=== PATIENT | male | born 1945 | race Caucasian/White ===

== ENCOUNTER → 2016-05-27 | Outpatient (CLI) | payer MEDICARE, OTHER ==
[~2016-05-27] MED LIST: GLUCOSAMINE & C1 TA1 PO; MULTIPLE VITAMI1 CAP PO; PREVACID 30MG30 M1 PO
[2016-05-27 09:35] LABS: BASO # 0.1 (0.0-0.2); BASO % 0.6 % (0.0-2.0); EOS # 0.1 (0.0-0.7); GRAN # 6.5 (1.4-6.5); GRAN % 74.5 % (42.2-75.2); HEMATOCRIT 45.9 % (42.0-52.0); HEMOGLOBIN 15.2 g/dl (13.5-18.0); LYMPH # 1.1 (1.2-3.4); LYMPH % 12.8 % (20.0-51.0); MEAN CELL VOLUME 87 fl (80.0-100.0); MEAN CORPUSCULAR HEMOGLOBIN 29 pg (27.0-31.0); MEAN CORPUSCULAR HGB CONC 33 g/dl (33.0-37.0); MEAN PLATELET VOLUME 11.3 fl (7.4-10.4); MONO # 0.9 (0.1-0.6); MONO % 10.8 % (1.7-9.3); PLATELET COUNT 182 K/mm3 (130-400); RED BLOOD COUNT 5.29 M/mm3 (4.20-5.60); REDCELL DISTRIBUTION WIDTH-CV 13.4 % (11.5-14.5); WHITE BLOOD COUNT 8.7 K/mm3 (4.8-10.8)
[2016-05-27 09:43] LABS: PH 6 (5-8); SQUAMOUS EPITHELIAL None Seen /hpf; URINE APPEARANCE Clear; URINE BACTERIA None Seen /hpf; URINE BILIRUBIN Negative (NEGATIVE); URINE BLOOD Negative (NEGATIVE); URINE COLOR Yellow; URINE GLUCOSE Negative (NEGATIVE); URINE KETONE Negative (NEGATIVE); URINE RBC 0-2 /hpf; URINE UROBILINOGEN Negative (NEGATIVE); URINE WBC 0-2 /hpf
[2016-05-27 09:51] LABS: ADJUSTED CALCIUM 9.7 mg/dL (8.4-10.2); ALBUMIN 3.8 gm/dL (3.5-5.0); BILIRUBIN,TOTAL 0.9 mg/dL (0.0-1.0); CALCIUM 9.5 mg/dL (8.4-10.2); CREATININE, serum 1.17 mg/dL (0.66-1.25); POTASSIUM 4.6 mmol/L (3.4-5.0); TOTAL PROTEIN 7.3 gm/dL (6.4-8.2)
[2016-05-27 10:21] LABS: PSA-TOTAL 1.42 ng/mL (0-4); THYROID STIMULATING HORMONE 1.52 uIU/mL (0.465-4.680)
== END ==
LOC: COL.LAB 08:29
PROVIDERS: Internal Medicine
DX: Z12.5 Encounter for screening for malignant neoplasm of prostate (principal); G47.33 Obstructive sleep apnea (adult) (pediatric); R74.8 Abnormal levels of other serum enzymes; Z11.59 Encounter for screening for other viral diseases; K21.9 Gastro-esophageal reflux disease without esophagitis; R73.01 Impaired fasting glucose
CPT/HCPCS: G0103

== ENCOUNTER → 2017-06-15 | Outpatient (CLI) | payer MEDICARE, OTHER ==
[2017-06-15 08:14] LABS: COLLECTION METHOD CLEAN CATCH
[2017-06-15 08:50] LABS: BASO # 0.1 (0.0-0.2); BASO % 0.6 % (0.0-2.0); EOS # 0.2 (0.0-0.7); EOS % 2.7 % (0-4.0); GRAN # 5.3 (1.4-6.5); HEMATOCRIT 47.3 % (42.0-52.0); HEMOGLOBIN 15.7 g/dl (13.5-18.0); LYMPH # 1.8 (1.2-3.4); LYMPH % 21.7 % (20.0-51.0); MEAN CELL VOLUME 88 fl (80.0-100.0); MEAN CORPUSCULAR HEMOGLOBIN 29 pg (27.0-31.0); MEAN CORPUSCULAR HGB CONC 33 g/dl (33.0-37.0); MEAN PLATELET VOLUME 11.5 fl (7.4-10.4); MONO # 0.8 (0.1-0.6); MONO % 9.6 % (1.7-9.3); PLATELET COUNT 168 K/mm3 (130-400); RED BLOOD COUNT 5.39 M/mm3 (4.20-5.60); REDCELL DISTRIBUTION WIDTH-CV 13.2 % (11.5-14.5)
[2017-06-15 09:00] LABS: PH 5 (5-8); SQUAMOUS EPITHELIAL None Seen /hpf; URINE APPEARANCE Clear; URINE BACTERIA None Seen /hpf; URINE BILIRUBIN Negative (NEGATIVE); URINE BLOOD Negative (NEGATIVE); URINE COLOR Yellow; URINE GLUCOSE Negative (NEGATIVE); URINE KETONE Negative (NEGATIVE); URINE LEUKOCYTE ESTERASE Negative (NEGATIVE); URINE NITRATE Negative (NEGATIVE); URINE PROTEIN(semi-quant) 1+ (NEGATIVE); URINE UROBILINOGEN Negative (NEGATIVE); URINE WBC 0-2 /hpf
[2017-06-15 09:05] LABS: ALBUMIN 4.1 gm/dL (3.5-5.0); BILIRUBIN,TOTAL 0.6 mg/dL (0.0-1.0); CHOLESTEROL RISK RATIO 3.8; CREATININE, serum 1.13 mg/dL (0.66-1.25); POTASSIUM 4.6 mmol/L (3.4-5.0); TOTAL PROTEIN 7.4 gm/dL (6.4-8.2)
[2017-06-15 09:35] LABS: THYROID STIMULATING HORMONE 2.14 uIU/mL (0.465-4.680)
[2017-06-15 09:37] LABS: PSA-TOTAL 1.42 ng/mL (0-4)
== END ==
LOC: COL.LAB 08:07
PROVIDERS: Internal Medicine
DX: Z12.5 Encounter for screening for malignant neoplasm of prostate (principal); K21.9 Gastro-esophageal reflux disease without esophagitis; R73.01 Impaired fasting glucose; R74.8 Abnormal levels of other serum enzymes
CPT/HCPCS: G0103

== ENCOUNTER 2017-10-13 13:19 | Inpatient (IN) | payer MEDICARE, OTHER ==
[~2017-10-13] VITALS: Wt 108.5 kg
[~2017-10-13 13:19] MED LIST changes: +CEROVITE SENIOR1 TA1 PO; -GLUCOSAMINE & C1 TA1 PO; +GLUCOSAMINE MSM1 TAB PO; -MULTIPLE VITAMI1 CAP PO
[2018-03-07] VITALS (10 sets, daily range): BP systolic 115–149; BP diastolic 61–73; PULSE 40–60; TEMP 97.8–978
[2018-03-07 16:56] LABS: BASO # 0.1 (0.0-0.2); BASO % 0.5 % (0.0-2.0); EOS # 0.1 (0.0-0.7); EOS % 0.8 % (0-4.0); GRAN # 10.4 (1.4-6.5); GRAN % 80.9 % (42.2-75.2); HEMATOCRIT 45.2 % (42.0-52.0); HEMOGLOBIN 14.8 g/dl (13.5-18.0); LYMPH # 1.2 (1.2-3.4); MEAN CELL VOLUME 90 fl (80.0-100.0); MEAN CORPUSCULAR HEMOGLOBIN 29 pg (27.0-31.0); MEAN CORPUSCULAR HGB CONC 33 g/dl (33.0-37.0); MEAN PLATELET VOLUME 10.7 fl (7.4-10.4); MONO # 1.1 (0.1-0.6); MONO % 8.3 % (1.7-9.3); PLATELET COUNT 155 K/mm3 (130-400); RED BLOOD COUNT 5.05 M/mm3 (4.20-5.60); REDCELL DISTRIBUTION WIDTH-CV 12.9 % (11.5-14.5)
[2018-03-07 17:26] LABS: ALBUMIN 3.3 gm/dL (3.5-5.0); BILIRUBIN UNCONJUGATED 0.3 mg/dL (0.0-1.1); BILIRUBIN,DIRECT 0.2 mg/dL (0.0-0.4); BILIRUBIN,TOTAL 0.5 mg/dL (0.0-1.0); CALCIUM 8.4 mg/dL (8.4-10.2); CREATININE, serum 0.85 mg/dL (0.66-1.25); POTASSIUM 4.6 mmol/L (3.4-5.0); TOTAL PROTEIN 6.4 gm/dL (6.4-8.2)
[2018-03-07 18:23] LABS: THYROID STIMULATING HORMONE 3.92 uIU/mL (0.465-4.680)
[2018-03-08 01:58] VITALS: BP 118/67; PULSE 70; TEMP 98.5
[2018-03-08 06:43] VITALS: BP 116/51; PULSE 47; TEMP 98.2
[2018-03-08 06:53] LABS: HEMATOCRIT 41.4 % (42.0-52.0); HEMOGLOBIN 13.4 g/dl (13.5-18.0)
[2018-03-08 08:32] VITALS: BP 117/61; PULSE 43; TEMP 99.1
[2018-03-08 11:40] VITALS: BP 129/63; PULSE 50; TEMP 98.4
[2018-03-08 16:19] VITALS: BP 122/52; PULSE 58; TEMP 98.2
[2018-03-08 22:58] VITALS: BP 139/59; PULSE 50; TEMP 98.9
[2018-03-09 02:59] VITALS: BP 148/63; PULSE 54; TEMP 98.9
[2018-03-09 07:41] VITALS: BP 132/61; PULSE 44; TEMP 98.7
[2018-03-09 16:51] VITALS: BP 132/59; PULSE 87; TEMP 98.4
[2018-03-09 20:19] VITALS: BP 126/57; PULSE 57; TEMP 98.6
[2018-03-09 23:40] VITALS: BP 115/57; PULSE 50; TEMP 98.6
[2018-03-10 03:33] VITALS: BP 122/66; PULSE 60; TEMP 98.5
[2018-03-10] MEDS ORDERED: MULTAQ400 MG PO (06:55)
[2018-03-10] MEDS ORDERED: ASPI325T6 PO (06:56)
[2018-03-10] MEDS ORDERED: NORCO 325 MG-7.1 TAB PO (06:56)
[2018-03-10] MEDS ORDERED: ROXICODONE 55 MG/TAB PO (06:58)
[2018-03-10 07:52] VITALS: BP 102/51; PULSE 46; TEMP 98.2
[2018-03-10 12:06] VITALS: BP 119/58; PULSE 50; TEMP 97.8
[2018-03-10] MEDS ORDERED: TAMBOCOR 1100 MG/TAB PO ×2 (12:33→12:34)
[2018-03-10] MEDS ORDERED: CEPHALEXIN500 M1 PO (12:36)
[2018-03-10 16:18] VITALS: BP 121/67; PULSE 50; TEMP 98.7
[2018-03-11 00:06] LABS: RHEUMATOID FACTOR-SCREEN <15 IU/mL (0-29)
[2018-03-14 00:56] LABS: ANA SCREEN with REFLEX Positive (Negative)
[2018-03-14 13:29] LABS: ANGIOTENSIN CONVERTING ENZYME 27 U/L (8 - 53)
[2018-03-15 22:40] LABS: ANTISCLERODERMA-70 AB XXX
== END 2018-03-10 16:54 | disposition home or self-care (01) | DRG 470 ==
LOC: JCC 12-13 07:30
PROVIDERS: Hospitalist; Internal Medicine Pulmonary Disease; Orthopaedic Surgery
PROC: 0SRC0J9 Replacement of Right Knee Joint with Synthetic Substitute, Cemented, Open Approach (ICD-10-PCS; principal; 2018-03-07 10:05)
PROC: 0JH632Z Insertion of Monitoring Device into Chest Subcutaneous Tissue and Fascia, Percutaneous Approach (ICD-10-PCS; 2018-03-09)
DX: M17.11 Unilateral primary osteoarthritis, right knee (principal); I97.191 Other postprocedural cardiac functional disturbances following other surgery; I48.0 Paroxysmal atrial fibrillation; G47.33 Obstructive sleep apnea (adult) (pediatric); I27.29 Other secondary pulmonary hypertension
CPT/HCPCS: 99222; 99231-AI; A4314; A9284; C1713; C1776; J0690; J1170; J2250; J2405; J2704; J3010; J7120

== ENCOUNTER → 2018-02-17 | Outpatient (CLI) | payer MEDICARE, OTHER ==
[2018-02-17 09:43] LABS: BASO % 0.5 % (0.0-2.0); EOS # 0.2 (0.0-0.7); EOS % 2.2 % (0-4.0); GRAN # 6.2 (1.4-6.5); GRAN % 72.7 % (42.2-75.2); HEMATOCRIT 47.8 % (42.0-52.0); LYMPH # 1.2 (1.2-3.4); LYMPH % 14.4 % (20.0-51.0); MEAN CELL VOLUME 88 fl (80.0-100.0); MEAN CORPUSCULAR HEMOGLOBIN 29 pg (27.0-31.0); MEAN CORPUSCULAR HGB CONC 34 g/dl (33.0-37.0); MEAN PLATELET VOLUME 11.4 fl (7.4-10.4); MONO # 0.9 (0.1-0.6); MONO % 9.9 % (1.7-9.3); PLATELET COUNT 187 K/mm3 (130-400); RED BLOOD COUNT 5.45 M/mm3 (4.20-5.60); REDCELL DISTRIBUTION WIDTH-CV 13.3 % (11.5-14.5)
[2018-02-17 09:51] LABS: INR 1.1 (0.8-3.0); MUCOUS Present /lpf; PH 5 (5-8); PROTHROMBIN TIME 12.5 SECONDS (9.7-12.8); SQUAMOUS EPITHELIAL 0-2 /hpf; URINE APPEARANCE Clear; URINE BACTERIA None Seen /hpf; URINE BILIRUBIN Negative (NEGATIVE); URINE BLOOD Negative (NEGATIVE); URINE COLOR Yellow; URINE GLUCOSE Negative (NEGATIVE); URINE KETONE Negative (NEGATIVE); URINE LEUKOCYTE ESTERASE Negative (NEGATIVE); URINE NITRATE Negative (NEGATIVE); URINE PROTEIN(semi-quant) 1+ (NEGATIVE); URINE RBC 0-2 /hpf; URINE UROBILINOGEN Negative (NEGATIVE)
[2018-02-17 09:54] LABS: ALBUMIN 3.9 gm/dL (3.5-5.0); BILIRUBIN,TOTAL 0.7 mg/dL (0.0-1.0); CALCIUM 9.2 mg/dL (8.4-10.2); COLLECTION METHOD CLEAN CATCH; CREATININE, serum 1.07 mg/dL (0.66-1.25); POTASSIUM 5.7 mmol/L (3.4-5.0); TOTAL PROTEIN 7.3 gm/dL (6.4-8.2)
== END ==
LOC: COL.LAB 08:47
PROVIDERS: Internal Medicine
DX: Z01.818 Encounter for other preprocedural examination (principal)

== ENCOUNTER 2018-02-20 09:01 | Outpatient (RCR) | payer MEDICARE, OTHER ==
[2018-03-10] MEDS ORDERED: MULTAQ400 MG PO (06:55)
[2018-03-10] MEDS ORDERED: ASPI325T6 PO (06:56)
[2018-03-10] MEDS ORDERED: NORCO 325 MG-7.1 TAB PO (06:56)
[2018-03-10] MEDS ORDERED: ROXICODONE 55 MG/TAB PO (06:58)
[2018-03-10] MEDS ORDERED: TAMBOCOR 1100 MG/TAB PO ×2 (12:33→12:34)
[2018-03-10] MEDS ORDERED: CEPHALEXIN500 M1 PO (12:36)
== END 2018-05-21 | disposition home or self-care (01) ==
LOC: WSPT
DX: Z01.818 Encounter for other preprocedural examination (principal); M17.11 Unilateral primary osteoarthritis, right knee
CPT/HCPCS: G8978-GP; G8979-GP

== ENCOUNTER → 2018-02-21 | Outpatient (CLI) | payer MEDICARE, OTHER | LOC: COL.LAB 15:27 | DX: E87.5 Hyperkalemia (principal) ==

== ENCOUNTER → 2018-02-28 | Outpatient (CLI) | payer MEDICARE, OTHER ==
[2018-02-28 11:11] LABS: HIV 1/2 Antibodies Non-Reactive; HIV-1p24 Antigen Non-Reactive
== END ==
LOC: COL.LAB 10:26
PROVIDERS: Orthopaedic Surgery
DX: Z01.812 Encounter for preprocedural laboratory examination (principal); M17.11 Unilateral primary osteoarthritis, right knee

== ENCOUNTER 2018-05-22 12:45 | Outpatient (RCR) | payer MEDICARE, OTHER ==
[~2018-05-22 12:45] MED LIST changes: +ASPI325T6 PO; +CEPHALEXIN500 M1 PO; +MULTAQ400 MG PO; +NORCO 325 MG-7.1 TAB PO; +ROXICODONE 55 MG/TAB PO; +TAMBOCOR 1100 MG/TAB PO
== END 2018-06-11 | disposition home or self-care (01) ==
LOC: WSC
DX: Z47.1 Aftercare following joint replacement surgery (principal); Z96.651 Presence of right artificial knee joint
CPT/HCPCS: G8978-GP; G8979-GP

== ENCOUNTER 2018-06-07 13:15 | Outpatient (RCR) | payer MEDICARE, OTHER ==
[2018-06-13] MEDS ORDERED: PLAVIX 75MG TAB75 MG PO (10:56)
[2018-06-14] MEDS ORDERED: CEPHALEXIN500 M1 PO (10:49)
== END 2018-08-20 | disposition still patient (30) ==
LOC: WSPT
DX: M17.11 Unilateral primary osteoarthritis, right knee (principal); Z79.891 Long term (current) use of opiate analgesic; Z79.01 Long term (current) use of anticoagulants; Z79.899 Other long term (current) drug therapy

== ENCOUNTER → 2018-07-03 | Outpatient (CLI) | payer MEDICARE, OTHER ==
[~2018-07-03] MED LIST changes: +PLAVIX 75MG TAB75 MG PO
[2018-07-03 09:11] LABS: COLLECTION METHOD CLEAN CATCH
[2018-07-03 09:20] LABS: BASO % 0.5 % (0.0-2.0); EOS # 0.3 (0.0-0.7); EOS % 3.9 % (0-4.0); GRAN # 4.4 (1.4-6.5); GRAN % 66.9 % (42.2-75.2); HEMATOCRIT 46.8 % (42.0-52.0); HEMOGLOBIN 15.3 g/dl (13.5-18.0); LYMPH # 1.1 (1.2-3.4); LYMPH % 16.7 % (20.0-51.0); MEAN CELL VOLUME 87 fl (80.0-100.0); MEAN CORPUSCULAR HEMOGLOBIN 29 pg (27.0-31.0); MEAN CORPUSCULAR HGB CONC 33 g/dl (33.0-37.0); MEAN PLATELET VOLUME 10.6 fl (7.4-10.4); MONO # 0.8 (0.1-0.6); MONO % 11.8 % (1.7-9.3); PLATELET COUNT 185 K/mm3 (130-400); RED BLOOD COUNT 5.37 M/mm3 (4.20-5.60)
[2018-07-03 09:28] LABS: PH 6 (5-8); SQUAMOUS EPITHELIAL None Seen /hpf; URINE APPEARANCE Clear; URINE BACTERIA None Seen /hpf; URINE BILIRUBIN Negative (NEGATIVE); URINE BLOOD Negative (NEGATIVE); URINE COLOR Yellow; URINE GLUCOSE Negative (NEGATIVE); URINE KETONE Negative (NEGATIVE); URINE LEUKOCYTE ESTERASE Negative (NEGATIVE); URINE NITRATE Negative (NEGATIVE); URINE PROTEIN(semi-quant) Negative (NEGATIVE); URINE RBC 0-2 /hpf; URINE UROBILINOGEN Negative (NEGATIVE)
[2018-07-03 09:33] LABS: ALBUMIN 3.8 gm/dL (3.5-5.0); BILIRUBIN,TOTAL 0.4 mg/dL (0.0-1.0); CALCIUM 9.2 mg/dL (8.4-10.2); CHOLESTEROL RISK RATIO 3.6; CREATININE, serum 0.99 mg/dL (0.66-1.25); POTASSIUM 4.6 mmol/L (3.4-5.0); TOTAL PROTEIN 7.2 gm/dL (6.4-8.2)
[2018-07-03 10:01] LABS: THYROID STIMULATING HORMONE 1.85 uIU/mL (0.465-4.680)
== END ==
LOC: COL.LAB 08:36
PROVIDERS: Internal Medicine
DX: I48.0 Paroxysmal atrial fibrillation (principal); I27.20 Pulmonary hypertension, unspecified; R73.01 Impaired fasting glucose; R74.8 Abnormal levels of other serum enzymes

== ENCOUNTER → 2018-07-24 | Outpatient (CLI) | payer MEDICARE, OTHER | LOC: COL.PUL 09:59 | DX: Z87.09 Personal history of other diseases of the respiratory system (principal) ==

== ENCOUNTER → 2018-07-25 | Outpatient (CLI) | payer MEDICARE, OTHER | LOC: COL.VAS 08:51 | DX: I27.20 Pulmonary hypertension, unspecified (principal); I48.91 Unspecified atrial fibrillation; I51.7 Cardiomegaly ==

== ENCOUNTER 2019-02-27 08:45 | Outpatient (RCR) | payer MEDICARE, OTHER | END 2019-04-05 | disposition home or self-care (01) | LOC: WSPT | DX: S76.311D Strain of muscle, fascia and tendon of the posterior muscle group at thigh level, right thigh, subsequent encounter (principal) ==

== ENCOUNTER → 2019-06-28 | Outpatient (CLI) | payer MEDICARE, OTHER ==
[2019-06-28 09:55] LABS: COLLECTION METHOD CLEAN CATCH
[2019-06-28 10:04] LABS: BASO # 0.1 (0.0-0.2); BASO % 0.6 % (0.0-2.0); EOS # 0.2 (0.0-0.7); EOS % 2.3 % (0-4.0); GRAN # 7.2 (1.4-6.5); GRAN % 73.4 % (42.2-75.2); HEMATOCRIT 47.9 % (42.0-52.0); HEMOGLOBIN 15.5 g/dl (13.5-18.0); LYMPH # 1.3 (1.2-3.4); LYMPH % 13.4 % (20.0-51.0); MEAN CELL VOLUME 90 fl (80.0-100.0); MEAN CORPUSCULAR HEMOGLOBIN 29 pg (27.0-31.0); MEAN CORPUSCULAR HGB CONC 32 g/dl (33.0-37.0); MEAN PLATELET VOLUME 10.6 fl (7.4-10.4); MONO % 9.8 % (1.7-9.3); PLATELET COUNT 192 K/mm3 (130-400); RED BLOOD COUNT 5.33 M/mm3 (4.20-5.60); REDCELL DISTRIBUTION WIDTH-CV 13.5 % (11.5-14.5)
[2019-06-28 10:13] LABS: BILIRUBIN,TOTAL 0.7 mg/dL (0.0-1.0); CALCIUM 9.1 mg/dL (8.4-10.2); CREATININE, serum 1.09 (0.66-1.25); POTASSIUM 4.3 mmol/L (3.4-5.0); TOTAL PROTEIN 7.2 gm/dL (6.4-8.2)
[2019-06-28 10:15] LABS: PH 7 (5-8); SQUAMOUS EPITHELIAL None Seen /hpf; URINE APPEARANCE Clear; URINE BACTERIA None Seen /hpf; URINE BILIRUBIN Negative (NEGATIVE); URINE BLOOD Negative (NEGATIVE); URINE COLOR Yellow; URINE GLUCOSE Negative (NEGATIVE); URINE KETONE Negative (NEGATIVE); URINE LEUKOCYTE ESTERASE Negative (NEGATIVE); URINE NITRATE Negative (NEGATIVE); URINE PROTEIN(semi-quant) Negative (NEGATIVE); URINE RBC 0-2 /hpf; URINE UROBILINOGEN Negative (NEGATIVE)
[2019-06-28 10:42] LABS: THYROID STIMULATING HORMONE 1.39 uIU/mL (0.465-4.680)
== END ==
LOC: COL.LAB 09:27
PROVIDERS: Internal Medicine
DX: Z12.5 Encounter for screening for malignant neoplasm of prostate (principal); K22.70 Barrett's esophagus without dysplasia; E78.2 Mixed hyperlipidemia; I48.0 Paroxysmal atrial fibrillation; I27.20 Pulmonary hypertension, unspecified

== ENCOUNTER 2019-09-13 14:13 | Outpatient (RCR) | payer MEDICARE, OTHER | END 2019-11-22 10:01 | disposition home or self-care (01) | LOC: WSPT 14:13 | DX: M25.511 Pain in right shoulder (principal); M25.512 Pain in left shoulder ==

== ENCOUNTER 2020-03-04 11:15 | Outpatient (RCR) | payer MEDICARE, OTHER | END 2020-03-29 14:45 | disposition home or self-care (01) | LOC: WSOT 11:15 | DX: M25.539 Pain in unspecified wrist (principal) ==

== ENCOUNTER → 2020-07-10 | Outpatient (CLI) | payer MEDICARE, OTHER ==
[2020-07-10 10:31] LABS: BASO # 0.1 (0.0-0.2); BASO % 0.8 % (0.0-2.0); EOS # 0.2 (0.0-0.7); EOS % 2.6 % (0-4.0); GRAN # 5.2 (1.4-6.5); GRAN % 71.7 % (42.2-75.2); HEMATOCRIT 45.3 % (42.0-52.0); HEMOGLOBIN 15.1 g/dl (13.5-18.0); LYMPH # 1.2 (1.2-3.4); LYMPH % 16.2 % (20.0-51.0); MEAN CELL VOLUME 88 fl (80.0-100.0); MEAN CORPUSCULAR HEMOGLOBIN 29 pg (27.0-31.0); MEAN CORPUSCULAR HGB CONC 33 g/dl (33.0-37.0); MEAN PLATELET VOLUME 10.5 fl (7.4-10.4); MONO # 0.6 (0.1-0.6); MONO % 8.4 % (1.7-9.3); PLATELET COUNT 202 K/mm3 (130-400); RED BLOOD COUNT 5.14 M/mm3 (4.20-5.60); REDCELL DISTRIBUTION WIDTH-CV 13.2 % (11.5-14.5)
[2020-07-10 10:41] LABS: ALBUMIN 3.9 gm/dL (3.5-5.0); BILIRUBIN,TOTAL 0.5 mg/dL (0.0-1.0); CALCIUM 8.9 mg/dL (8.4-10.2); CHOLESTEROL RISK RATIO 4.9; CREATININE, serum 1.03 (0.66-1.25); POTASSIUM 4.3 mmol/L (3.4-5.0); TOTAL PROTEIN 7.5 gm/dL (6.4-8.2)
[2020-07-10 11:10] LABS: THYROID STIMULATING HORMONE 1.42 uIU/mL (0.465-4.680)
== END ==
LOC: COL.LAB 08:52
PROVIDERS: Internal Medicine
DX: I48.0 Paroxysmal atrial fibrillation (principal); R74.8 Abnormal levels of other serum enzymes; K21.9 Gastro-esophageal reflux disease without esophagitis; K22.70 Barrett's esophagus without dysplasia; I27.20 Pulmonary hypertension, unspecified; R73.01 Impaired fasting glucose

== ENCOUNTER → 2021-08-10 | Outpatient (CLI) | payer MEDICARE, OTHER ==
[2021-08-10 10:33] LABS: BASO % 0.5 % (0.0-2.0); EOS # 0.2 K/mm3 (0.0-0.7); EOS % 1.8 % (0.0-4.0); GRAN # 5.9 K/mm3 (1.4-6.5); GRAN % 72.2 % (42.2-75.2); HEMATOCRIT 45.4 % (42.0-52.0); HEMOGLOBIN 15.1 g/dl (13.5-18.0); LYMPH # 1.3 K/mm3 (1.2-3.4); LYMPH % 15.8 % (20.0-51.0); MEAN CELL VOLUME 89 fl (80.0-100.0); MEAN CORPUSCULAR HEMOGLOBIN 29 pg (27-31); MEAN CORPUSCULAR HGB CONC 33 g/dl (33.0-37.0); MEAN PLATELET VOLUME 10.8 fl (7.4-10.4); MONO # 0.8 K/mm3 (0.1-0.6); MONO % 9.5 % (1.7-9.3); PLATELET COUNT 194 K/mm3 (130-400); RED BLOOD COUNT 5.13 M/mm3 (4.20-5.60); REDCELL DISTRIBUTION WIDTH-CV 13.6 % (11.5-14.5)
[2021-08-10 10:56] LABS: ALBUMIN 3.6 gm/dL (3.4-4.8); BILIRUBIN,TOTAL 0.6 mg/dL (0.2-1.2); CALCIUM 8.8 mg/dL (8.4-10.2); CHOLESTEROL RISK RATIO 3.9; CREATININE, serum 1.12 mg/dL (0.72-1.25); POTASSIUM 4.2 mmol/L (3.5-4.5); TOTAL PROTEIN 6.9 gm/dL (6.2-8.1); URIC ACID 5.7 mg/dL (3.5-7.2)
[2021-08-10 11:22] LABS: THYROID STIMULATING HORMONE 1.456 uIU/mL (0.350-4.940)
== END ==
LOC: COL.LAB 09:20
PROVIDERS: Internal Medicine
DX: K22.70 Barrett's esophagus without dysplasia (principal); I27.20 Pulmonary hypertension, unspecified; J30.2 Other seasonal allergic rhinitis; R74.8 Abnormal levels of other serum enzymes; Z87.39 Personal history of other diseases of the musculoskeletal system and connective tissue

== ENCOUNTER → 2021-09-08 | Outpatient (RCR) | payer MEDICARE, OTHER | END | disposition home or self-care (01) | LOC: PT.GENESIS | DX: M16.12 Unilateral primary osteoarthritis, left hip (principal) ==

== ENCOUNTER → 2021-10-05 | Outpatient (CLI) | payer MEDICARE, OTHER ==
[2021-10-05 17:00] LABS: BASO # 0.1 K/mm3 (0.0-0.2); BASO % 0.7 % (0.0-2.0); EOS # 0.3 K/mm3 (0.0-0.7); EOS % 3.1 % (0.0-4.0); GRAN # 5.9 K/mm3 (1.4-6.5); GRAN % 67.5 % (42.2-75.2); HEMATOCRIT 44.6 % (42.0-52.0); HEMOGLOBIN 14.9 g/dl (13.5-18.0); LYMPH # 1.5 K/mm3 (1.2-3.4); LYMPH % 17.4 % (20.0-51.0); MEAN CELL VOLUME 89 fl (80.0-100.0); MEAN CORPUSCULAR HEMOGLOBIN 30 pg (27-31); MEAN CORPUSCULAR HGB CONC 33 g/dl (33.0-37.0); MEAN PLATELET VOLUME 10.2 fl (7.4-10.4); MONO # 0.9 K/mm3 (0.1-0.6); MONO % 10.6 % (1.7-9.3); PLATELET COUNT 230 K/mm3 (130-400); REDCELL DISTRIBUTION WIDTH-CV 14.3 % (11.5-14.5)
[2021-10-05 17:03] LABS: PH 5 (5-8); SQUAMOUS EPITHELIAL None Seen /hpf (0-10); URINE APPEARANCE Clear (CLEAR/HAZY); URINE BACTERIA None Seen /hpf (NONE SEEN); URINE BILIRUBIN Negative (NEGATIVE); URINE BLOOD Negative (NEGATIVE); URINE COLOR Yellow (YELLOW); URINE GLUCOSE Negative (NEGATIVE); URINE KETONE Negative (NEGATIVE); URINE LEUKOCYTE ESTERASE Negative (NEGATIVE); URINE NITRATE Negative (NEGATIVE); URINE PROTEIN(semi-quant) 1+ (NEGATIVE); URINE RBC 0-2 /hpf (0-2); URINE UROBILINOGEN Negative (NEGATIVE)
[2021-10-05 17:06] LABS: COLLECTION METHOD CLEAN CATCH; INR 1.2 (0.8-3.0); PROTHROMBIN TIME 13.7 SECONDS (9.7-12.8)
[2021-10-05 17:27] LABS: CREATININE, serum 1.13 mg/dL (0.72-1.25); POTASSIUM 4.3 mmol/L (3.5-4.5)
== END ==
LOC: COL.LAB 16:11
PROVIDERS: Internal Medicine
DX: Z01.812 Encounter for preprocedural laboratory examination (principal); I48.0 Paroxysmal atrial fibrillation

== ENCOUNTER 2021-10-07 14:45 | Outpatient (RCR) | payer MEDICARE, OTHER | END 2021-10-07 16:30 | disposition still patient (30) | LOC: PT.GENESIS 14:45 | DX: M16.12 Unilateral primary osteoarthritis, left hip (principal) ==

== ENCOUNTER 2021-10-19 11:07 | Outpatient (RCR) | payer MEDICARE, OTHER ==
[2021-10-22] MEDS ORDERED: ELIQUIS 2.5 PO (13:22)
[2021-10-22] MEDS ORDERED: XARELTO10 MG PO (15:40)
== END 2021-10-29 09:43 | disposition home or self-care (01) ==
LOC: PT.GENESIS 11:07
DX: M16.12 Unilateral primary osteoarthritis, left hip (principal)

== ENCOUNTER 2021-10-22 12:39 | Day surgery (SDC) | payer MEDICARE, OTHER ==
[2021-10-22] VITALS (10 sets, daily range): BP systolic 129–158; BP diastolic 63–83; PULSE 60–78; TEMP 97.5–98
[~2021-10-22] VITALS: Ht 188 cm; Wt 112.5 kg
[2021-10-22] MEDS ORDERED: ELIQUIS 2.5 PO (13:22)
[2021-10-22] MEDS ORDERED: XARELTO10 MG PO (15:40)
--- NOTE | 2021-10-22 16:20 | NUR ---
PT ARRIVED FROM PACU. PT IS [id number]. PT ORIENTED TO ROOM AND FLOOR. PT'S VSS. DRESSING TO L HIP C/D/I. PT INSTRUCTED TO CALL WITH ALL NEEDS. PT HAS CALL LIGHT.
--- NOTE | 2021-10-22 19:58 | NUR ---
ASSESSMENT COMPLETE. PT. LYING IN BED WITH AT BEDSIDE. A&O. PT. COMPLAINING OF PAIN 11/18. MAHNAZ GIVEN (SEE EMAR). PT. ASSISTED TO THE BATHROOM WITH A WALKER. GAIT SLOW. IV TO RIGHT WRIST PATENT. ICE PACK TO LEFT HIP REFREASHED. SCDS/TEDS ON. CALL LIGHT IN REACH. NO FURTHER NEEDS AT THIS TIME.
[2021-10-23] VITALS (7 sets, daily range): BP systolic 114–125; BP diastolic 58–67; PULSE 60–62; TEMP 98.3–100.6
[2021-10-23 06:53] LABS: HEMATOCRIT 38.6 % (42.0-52.0); HEMOGLOBIN 12.7 g/dl (13.5-18.0)
--- NOTE | 2021-10-23 08:00 | NUR ---
PT A&O SITTING UP IN RECLINER. AM MEDS GIVEN AND ASSESSMENT COMPLETED. VS STABLE. LT HIP INCISION CDI. PT REPORTS SOME DISCOMFORT AFTER WORKING WITH PHYSICAL THERAPY. NO OTHER NEEDS AT THIS TIME. CALL LIGHT WITHIN REACH.
--- NOTE | 2021-10-23 14:01 | NUR ---
PT REPOPTS A PN OF 9/10 AFTER AMBULATING TO THE BATHROOM AND REQUESTS PN PILL. PN PILL GIVEN. NO OTHER NEEDS AT THIS TIME. CALL LIGHT WITHIN REACH.
--- NOTE | 2021-10-23 14:58 | NUR ---
Chain Puller met with patient to discuss discharge planning. Patient lives in [place] with his , Denisse (ph#[phone]) who is at bedside. Patient sees Dr. Roth for primary care and obtains medications from [facility] with no difficulties. Patient has a walker and cane at home, however does not normally need them. Patient is normally independent with ADLS. PT has worked with patient and while they do not feel he is ready for discharge home today, they feel patient could possibly go home over the weekend. Patient and are unsure if patient can manage at home and Denisse advised she recently broke her arm so she is limited in what she can help with. SW explained to patient and Denisse that patient is outpatient status, which means he would not qualify for a shelter stay under Medicare. SW advised a SNF stay would be private pay. While patient is not happy about this, he advised he can afford private pay if it is needed. Patient hopes to go home, however would like SNF referrals sent in case that is what is needed at discharge. Preferences for rehab are 1) [facility] and 2)[facility]. SW contacted both facilities and faxed referral. IPR Screen was also placed by attending and [facility] Director advised she will review referral. Discharge Plan: Pending progress with PT/OT. Possibly Home, but referrals also sent to [facility], [facility] and [facility]. Patient understands that SNF would be private pay.
--- NOTE | 2021-10-23 20:15 | NUR ---
ASSESSMENT COMPLETE. PT. SITTING IN BED WITH AT BEDSIDE. A&O. STATES HE FEELS "COMFORTABLE". DRESSING TO LEFT HIP CDI WITH SOME BRUISING. ICE TO THAT HIP. CALL LIGHT IN REACH. NO FURTHER NEEDS AT THIS TIME.
[2021-10-24 03:11] VITALS: BP 147/62; PULSE 62; TEMP 98.5
[2021-10-24 05:59] LABS: HEMATOCRIT 37.9 % (42.0-52.0); HEMOGLOBIN 12.3 g/dl (13.5-18.0)
[2021-10-24 08:00] VITALS: BP 111/52; PULSE 58; TEMP 99
--- NOTE | 2021-10-24 08:30 | NUR ---
PATIENT IS A&O AND SITTING UP IN BEDSIDE CHAIR. GAIT STEADY WITH WALKER. PT/OT CONSULTED. PATIENT HOPING TO DISCHARGE TO [facility] TODAY IF ACCEPTED. VSS. DENIES N/V. ABD IS ROUND, SOFT AND WITH POSITIVE BOWL SOUNDS. IV TO INT. PT NOW AT BEDSIDE TO WORK WITH PATIENT. PATIENT REPORTS INCREASED DISCOMFORT WITH PT AND AGREES HE WOULD LIKE SOMETHING FOR PAIN. GAVE PRN ROXICODONE WITH AM MEDS. LEFT HIP AQUACEL CD&I. HEAD TO TOE ASSESSMENT COMPLETE. ROUNDING. NO OTHER NEEDS.
--- NOTE | 2021-10-24 11:30 | NUR ---
IPR SCREENER CAME OUT OF ROOM AND HAS ACCEPTED PATIENT, WILL BE NOTIFIED BY HER FOR ORDERS. PLAN IS TO TRANSFER TO ROOM 337 TODAY. PATIENT AND BOTH AWARE. WAITING FOR ORDERS.
[2021-10-24 12:14] VITALS: BP 115/57; PULSE 60; TEMP 98.8
--- NOTE | 2021-10-24 12:49 | NUR ---
Technical Sales Director offered prayer and support with patient while spouse was in room.
--- NOTE | 2021-10-24 14:30 | NUR ---
PATIENT TRANSFERED VIA WC TO IPR, AT BEDSIDE.
== END 2021-10-24 14:30 ==
LOC: SDCO 12:39 → SURG 16:38 → SDCO 10-24 14:30
PROVIDERS: Orthopaedic Surgery Sports Medicine
DX: M16.12 Unilateral primary osteoarthritis, left hip (principal); G47.33 Obstructive sleep apnea (adult) (pediatric); I48.0 Paroxysmal atrial fibrillation; K21.9 Gastro-esophageal reflux disease without esophagitis; K22.70 Barrett's esophagus without dysplasia; Z95.0 Presence of cardiac pacemaker; C44.90 Unspecified malignant neoplasm of skin, unspecified
CPT/HCPCS: OP; A9284; C1776; J0690; J2250; J2405; J2704; J3010; J7120

== ENCOUNTER 2021-10-24 15:41 | Inpatient (IN) | payer MEDICARE, OTHER ==
[~2021-10-24] VITALS: Ht 188 cm; Wt 113.3 kg
--- NOTE | 2021-10-24 14:30 | NUR ---
PATIENT ADMITED INTO ROOM 337 ON IPR FROM THE SURGICAL UNIT. AT BEDSIDE. PERSONAL BELONGINGS TRANSFERED TO NEW ROOM. SEE ORDERS. PATIENT ORIENTED TO ROOM. CALL LIGHT IN REACH. PATIENT RESTING UP IN BED WITH NO NEEDS.
[~2021-10-24 15:41] MED LIST changes: +ELIQUIS 2.5 PO; +XARELTO10 MG PO
--- NOTE | 2021-10-24 16:29 | NUR ---
Patient came over from Surgical. is Denisse [phone], PCP is Dr. Roth. Plan upon DC is home. SW will continue to follow.
[2021-10-24 16:32] VITALS: BP 120/60; PULSE 61; TEMP 98.5
--- NOTE | 2021-10-24 19:01 | NUR ---
RECEIVED CHANGE OF SHIFT REPORT FROM DAY SHIFT RN. PATIENT RESTING IN BED WITH EXIT ALARM ON AND CALL LIGHT WITHIN REACH. DENIES ANY NEEDS AT TIME OF REPORT.
--- NOTE | 2021-10-25 03:45 | NUR ---
PATIENT UP IN CHAIR, REPORTING HE FEELS BLOATED TO ABD, DENIES NAUSEA. DENIES CHEST PAIN/SOA. EXIT ALARM ON WHILE UP IN CHAIR, CALL LIGHT WITHIN REACH.
[2021-10-25 05:28] VITALS: BP 124/66; PULSE 60; TEMP 97.7
--- NOTE | 2021-10-25 07:24 | NUR ---
CHANGE OF SHIFT REPORT GIVEN TO DAY SHIFT RNNITO.
[2021-10-25 16:55] VITALS: BP 126/63; PULSE 60; TEMP 98
--- NOTE | 2021-10-25 18:30 | NUR ---
PT HAS RESTED IN BED MOST OF DAY, WAS UP TO CHAIR FOR MEALS. PT HAS BEEN ASSISTED TO THE BR, HAD A LARGE LOOSE BM. PT USES WALKER TO AMBULATE, DOES BECOME STIFF AFTER SITTING FOR LONG PERIODS OF TIME. PT'S SPOUSE HAS BEEN TO VISIT. ALARMS USED FOR SAFETY. CALL LIGHT WITHIN REACH.
--- NOTE | 2021-10-25 18:47 | NUR ---
RECEIVED CHANGE OF SHIFT REPORT FROM DAY SHIFT RN.
[2021-10-26 05:26] VITALS: BP 136/93; PULSE 59; TEMP 98.2
[2021-10-26 06:45] LABS: BASO # 0.1 K/mm3 (0.0-0.2); BASO % 0.4 % (0.0-2.0); EOS # 0.3 K/mm3 (0.0-0.7); EOS % 2.5 % (0.0-4.0); GRAN # 9.3 K/mm3 (1.4-6.5); GRAN % 76.8 % (42.2-75.2); HEMOGLOBIN 12.4 g/dl (13.5-18.0); LYMPH # 1.2 K/mm3 (1.2-3.4); LYMPH % 10.2 % (20.0-51.0); MEAN CELL VOLUME 93 fl (80.0-100.0); MEAN CORPUSCULAR HEMOGLOBIN 30 pg (27-31); MEAN CORPUSCULAR HGB CONC 33 g/dl (33.0-37.0); MONO # 1.2 K/mm3 (0.1-0.6); MONO % 9.5 % (1.7-9.3); PLATELET COUNT 183 K/mm3 (130-400); RED BLOOD COUNT 4.11 M/mm3 (4.20-5.60); REDCELL DISTRIBUTION WIDTH-CV 13.9 % (11.5-14.5)
--- NOTE | 2021-10-26 07:10 | NUR ---
CHANGE OF SHIFT REPORT GIVEN TO DAY SHIFT RNMEME.
[2021-10-26 07:15] LABS: CALCIUM 8.7 mg/dL (8.4-10.2); MAGNESIUM 1.9 mg/dL (1.6-2.6); POTASSIUM 3.7 mmol/L (3.5-4.5)
[2021-10-26 16:53] VITALS: BP 124/60; PULSE 59; TEMP 97.7
[2021-10-27 05:40] VITALS: BP 145/69; PULSE 64; TEMP 98.2
--- NOTE | 2021-10-27 07:30 | NUR ---
BEDSIDE REPORT DONE. PATIENT STILL IN BED RESTING WAITING FOR BREAKFAST. CALL LIGHT IN REACH.
--- NOTE | 2021-10-27 08:28 | NUR ---
ASSESSMENT DONE. PATIENT ALERTX4. ATE 100% ON HIS BREAKFAST. GAVE HIM A prn MIRALEX FOR CONSTIPATION. PATIED STATED THAT HE HAD SMALL PIBBLES YESTERDAY WITH WATERY STOOL. PATIETN TAKE PAIN MEDICATION FOR PAIN.
--- NOTE | 2021-10-27 14:58 | NUR ---
PATIENT ON KEFLEX FOR POST SURGERY PROPHYLACTIVE.
--- NOTE | 2021-10-27 15:15 | NUR ---
GRETEL met with the patient and his , Denisse, to follow up and introduce oneself. The patient states that there has been a lot of therapy, but it has been going well. The patient lives in [place] with his . He reports independence with ADLs before hospitalization and has a cane and walker. They had no questions or concerns for GRETEL at this time.
[2021-10-27 17:17] VITALS: BP 123/67; PULSE 59; TEMP 98.4
--- NOTE | 2021-10-27 18:39 | NUR ---
TOOK PATIENT TO THE BATHROOM AND NOTICES DRAINAGE ON PAD, NOTICES THAT PATIENT AQUACEL AG WAS FULL OF BLOOD AND DRAINAGE DOWN HIS LEG. TEMP WAS 98.0. NO PAIN NOTED, BRUISE AND SWOLLEN. CALLED [facility] AND SPOKE WITH CAMILO MORGAN. HE SAID TO CHANGE THE DRESSING WITH AQUACEL AG AND CALL THE DOCTOR TOMORROW MORNING. HE INFORM THAT SOMETIME WHEN INCREASE ATIVITY WILL INCREASE DRAINAGE. HE ALSO SAID HE IS NOT WORRY ABOUT IT TONIGHT AND FOR US TO CALL DR HWANG OR ABNER MORGAN TOMORROW TO INFORM. REPORT IF THERE IS ANY INCREASE DRAINAGE, FEVER OR PAIN.
--- NOTE | 2021-10-27 19:00 | NUR ---
RECEIVED CHANGE OF SHIFT REPORT FROM DAY SHIFT RN.
[2021-10-28 05:35] VITALS: BP 138/75; PULSE 65; TEMP 98.1
--- NOTE | 2021-10-28 07:02 | NUR ---
CHANGE OF SHIFT REPORT GIVEN TO DAY SHIFT RNs, CECILLE. PATIENT UP WITH SBA WHEN AWAKE. SEE MAR FOR MEDS GIVEN DURING SHIFT. DRESSING TO L HIP REMAINED INTACT. EXIT ALARM ON WHEN IN BED WITH CALL LIGHT WITHIN REACH DURING THE SHIFT.
--- NOTE | 2021-10-28 08:57 | NUR ---
BEDSIDE REPORT WAS DONE. PATIENT RESTING IN BED WITH NO ISSUE. CALL LIGHT IN REACH.
--- NOTE | 2021-10-28 10:54 | NUR ---
Initial visit; Patient thanked Newspaper Writer for looking in on him, wishing him well and offering God's blessings.
--- NOTE | 2021-10-28 11:06 | NUR ---
ASSESSMENT DONE. PATIENT ALERT X 4 WITH NO PAIN NOTED. PATIENT DID SAY THAT HE FEEL BLOATED BUT NO PAIN. HAD A BOWEL MOVEMENT WATERY YESTERDAY.LAST PAIN MEDICATION WAS EARLY THIS MORNING. LUNG SOUND CLEAR IN ALL LOBES. BOWEL SOUND ACTIVE IN ALL 4 QUADS. CALL LIGHT IN REACH. TOOK MEDICATION WTIH OUT ANY ISSUE.
--- NOTE | 2021-10-28 14:55 | NUR ---
GRETEL met with the patient and his , Denisse, to present and review the IPR Team Conference Note. The team has set a tentative discharge date for next Tuesday, 11/03, with home health PT/OT. The patient and his are in agreement to the discharge date. Denisse reports that the patient was doing outpatient PT at [facility] at [facility] prior to discharge and he still has appointments set up there. She asked if the patient could continue to do outpatient therapy. She states that she is also going to outpatient PT at [facility] at [facility] and OT at [facility] on [address] and they have their appointments back to back. The patient voiced, "what if he cannot or has difficulties getting in the car." The patient verbalized understanding. GRETEL informed them how the team would work on car transfers before discharge. The patient and Sara would like to see how he does with the transfers, but would prefer outpatient therapy in able to do the transfers. A patient/family meeting was scheduled for this Tuesday at 1000. GRETEL notified IPR Director.
[2021-10-28 18:08] VITALS: BP 139/68; PULSE 72; TEMP 97.9
--- NOTE | 2021-10-28 19:22 | NUR ---
RECEIVED CHANGE OF SHIFT REPORT FROM DAY SHIFT RN.
--- NOTE | 2021-10-29 00:25 | NUR ---
PATIENT SLEEPING, DOES NOT WAKE WHEN ROOM ENTERED BY NURSING ON ROUNDS. BREATHING NONLABORED AND EVEN. CPAP ON AND FUNCTIONING. EXIT ALARM ON WHILE IN BED, CALL LIGHT WITHIN REACH.
--- NOTE | 2021-10-29 03:25 | NUR ---
AFTER PATIENT RETURNED FROM USING BATHROOM, HAD TO GET BACK UP AGAIN WITH ANOTHER URGE TO HAVE BM.
[2021-10-29 05:40] VITALS: BP 136/70; PULSE 60; TEMP 98.6
--- NOTE | 2021-10-29 07:23 | NUR ---
CHANGE OF SHIFT REPORT GIVEN TO DAY SHIFT RAPHAEL SENIOR.
--- NOTE | 2021-10-29 08:38 | NUR ---
PT RESTING IN BED. MORNING MEDICATIONS GIVEN. SHIFT ASSESSMENT COMPLETED. PT REPORTS PAIN TO L HIP WITH MOVEMENT. PT UP AND AMBULATING AROUND ROOM WELL WITH ADLs. INCISION SITE TO L HIP HAS SOME DRAINAGE TO DRESSING, BRUISING AND SOME EDEMA NOTED TO BUTTOCKS AND THIGH. ABDOMEN DISTENDED AND FIRM, PT STATES HE HAS HAD LIQUID STOOLS BUT STILL FEELS BLOATED. PRN STOOL SOFTENERS OFFER, PT DENIES AT THIS TIME, WILL REASSESS LATER. CONTINUING TO MONITOR.
--- NOTE | 2021-10-29 13:32 | NUR ---
Admission QIM scores were reviewed by the team. Code of 4 chosen for toilet hygiene was determined by team discussion to be the most usual performance for this patient during the assessment period. Code of 2 for sit to stand was determined by team discussion to be the most usual performance for this patient during the assessment period. Code of 3 for chair/bed to chair transfers was determined by team discussion to be the most usual performance for this patient during the assessment period. Code of 3 for car transfer was determined by team discussion to be the most usual performance before interventions for this patient during the assessment period.--Caitlin Sawant, PD
--- NOTE | 2021-10-29 15:53 | NUR ---
VERBAL ORDERS FROM DR. VALENTE TO GIVE SUPPOITORY NOW. IF PT DOES NOT HAVE BM WITHIN 6 HOURS OR BECOMES TOO UNCOMFORTABLE WE WILL ATTEMPT SOAP SUDS ENEMA.
--- NOTE | 2021-10-29 17:15 | NUR ---
PT STRUGGELING WITH HAVING A BOWEL MOVEMENT THIS EVENING. HAS BEEN AMBULATING WELL AROUND ROOM. WILL CONTINUE TO MONITOR.
[2021-10-29 18:01] VITALS: BP 116/60; PULSE 80; TEMP 98.5
--- NOTE | 2021-10-30 05:25 | NUR ---
pt has been up to restroom several times this shift with assist of x1 using GB and walker, no longer feeling abd fullness or constipated after having BMs. pt c/o inability to sleep, slightly anxious. roxicodone given to help with restlessness @ 0400, pt now sleeping soundly.
[2021-10-30 06:09] VITALS: BP 132/66; PULSE 61; TEMP 98.3
--- NOTE | 2021-10-30 06:48 | NUR ---
BEDSIDE REPORT DONE ORDER. PATIENT RESTING IN BED WITH EYES CLOSED. CALL LIGHT IN REACH
--- NOTE | 2021-10-30 07:05 | NUR ---
Pt assisted from bathroom to sink using FWW, gait belt. Pt. standing at sink for oral hygiene and to shave. Pt. denies pain at this time. YANCI dumont are on.
--- NOTE | 2021-10-30 10:02 | NUR ---
ASSESSMENT DONE ORDER. PATIENT ABLE TO GET UP WITH HELP WITH ASSISTANCE. USE WALKER FOR STABILITY. PATIENT LUNG CLEAR IN ALL LOBES. BOWEL SOUND ACTIVE. HAD A BOWEL MOVEMENT YESTERDAY WITH SUPP. MIRALEX WAS GIVEN THIS AM. CALL LIGHT IN REACH.
--- NOTE | 2021-10-30 10:19 | NUR ---
SW attended the patient/family meeting. The patient's , Denisse, at bedside. The patient's [id number] was on speaker phone. Also present was IPR Director, Dr. Guallpa, PT, and OT. IPR Director started by explaining the purpose of the meeting. Dr. Guallpa then provided the patient and his family with a clinical update. PT/OT discussed the patient's progress so far. The team reviewed the plan for discharge next Tuesday, with their recommendation for home health first. The patient and his are still deciding if they want to pursue home health vs outpatient therapy. The team answered all questions.
--- NOTE | 2021-10-30 12:35 | NUR ---
SPOKE WITH ELGIN HWANG NURSE. SHE INFORM THAT DR WANTED KEFLEX STARTED, I INFORM THAT HE IS ALREADY STARTED ON KEFLEX 500MG TID FOR 21 DAYS. SHE SAID TO CONTINUE AND THEY WILL SEE HIM NEX WEEK. I EXPLAIN THAT HE WILL BE DISCHARGE NEXT WEEK ON October. SHE INFORM THAT HE HAS A FOLLOW UP APPOINTMENT ON October AT 915AM. APPOINTMENT WAS UPDATED IN DISCHARGE PLANNING.
--- NOTE | 2021-10-30 13:00 | NUR ---
RECEIVED A CALL FROM Gisella THAT HIS SITE WAS LEAKING(PER THE PATIENT) I CHECK THE SITE AND IT WAS LEAKING, INFORM DR OLIVER AND HE LOOK AT IT WITH ME AND SAID HIS SITE LOOK GOOD. THE AQUCELL WAS CHANGE AGAIN. NOTICES SWELLING ON UPPER THIGH AREA BUT NOT LOWER THIGH. NO OPEN AREA NOTED. THERE WAS 3 BLOOD BLISTER BUT IT ALL THREE OF THEM ARE OPEN. UNSURE WHERE THE FLUIDS COMING FROM. I CALLED DR HWANG TO INFORM AND SPOKE NAN EISENBERG, INFORM OF THE SITUATION. SHE WILL INFORM THE DOCTOR AND IF THERE IS ANY CHANGES, SHE WILL LET ME KNOW.
[2021-10-30 16:53] VITALS: BP 128/58; PULSE 61; TEMP 97.8
--- NOTE | 2021-10-30 20:42 | NUR ---
PT RESTING IN BED. MILD LT HIP PAIN. SEE MAR FOR TYLENOL GIVEN. LT HIP DRY HAS VERY SMALL DRG SPOT ON DRESSING. PT MOD I IN ROOM. PT ENC TO CALL STAFF FOR ASSIST WHEN NEEDED. PT STILL FEELS CONSTIPATED. SEE MAR FOR SCHEDULED SENOKOT AND COLACE GIVEN. HAS ATHERLETES FOOT LT FOOT 4&5 TH TOES- LOTRIMIN CR APPLIED. CALL LIGHT IN REACH.
[2021-10-31 05:29] VITALS: BP 127/69; PULSE 60; TEMP 98.2
--- NOTE | 2021-10-31 10:34 | NUR ---
PATIENT DOING WELL THIS MORNING. MORNING ASSESSMENTS COMPLETE. LEFT HIP INCISION SITE AND DRESSING LOOKS WELL, CLEAN DRY AND INTACT. CHANGED FROM AQUACELL TO MEDIPORE DRESSING TO ALLOW BETTER OXYGENATION OF WOUND. WBAT WITH USE OF WALKER, PATIENT AMBULATES WELL ON OWN, STEADY GAIT. PARTICIPATED IN THERAPY TODAY. TAKES MEDS WHOLE WITHOUT ISSUE. GOOD APPETITE. NO COMPLAINTS OF ABDOMINAL PAIN, CRAMPING, OR DISTENTION AT THIS TIME. A&O X4. VITALS WNL.
[2021-10-31 18:00] VITALS: BP 121/65; PULSE 66; TEMP 97.4
--- NOTE | 2021-10-31 19:02 | NUR ---
PT SITTING IN RECLINER. A&OX4. AT SIDE. VERY SUPPORTIVE. PT C/O HAS NOT HAD BM IN 3 DAYS. REFUSED SUPPOSITORY. GETS SCHEDULE SENOKOT AND COLACE AT HS. GAVE PRUNE JUICE. PT MOD I IN ROOM.
--- NOTE | 2021-10-31 20:48 | NUR ---
GAVE ROXICODONE PER REQUEST FOR LT HIP PAIN. PT REPORTED HAD GOOD BM.
--- NOTE | 2021-11-01 00:50 | NUR ---
ES TYLENOL GIVEN FOR LT HIP DISCOMFORT.
--- NOTE | 2021-11-01 02:43 | NUR ---
PT SLEEPING. NO DISTRESS.
[2021-11-01 05:53] VITALS: BP 118/73; PULSE 61; TEMP 97.7
--- NOTE | 2021-11-01 05:54 | NUR ---
PT UP TO RECLINER. WORKING ON LAPTOP. NO NEEDS AT THIS TIME.
--- NOTE | 2021-11-01 06:47 | NUR ---
Shift report received from slot shift supervisor RN
--- NOTE | 2021-11-01 07:53 | NUR ---
Ortho PA here to f/u with pt. No changes, no new orders
--- NOTE | 2021-11-01 09:51 | NUR ---
Pt sitting up in recliner, checking his emails. He denies pain/discomfort. Denies additional needs. He remains Mod I in room. Call light is within his reach
[2021-11-01 17:30] VITALS: BP 121/54; PULSE 62; TEMP 98.1
--- NOTE | 2021-11-01 21:38 | NUR ---
PT GETTING READY FOR BED. HAS CPAP READY. SEE MAR FOR PAIN MED GIVEN EARLIER FOR LT HIP PAIN. MOD I IN ROOM. CALL LIGHT IN REACH.
[2021-11-02 05:03] VITALS: BP 122/69; PULSE 60; TEMP 98.4
--- NOTE | 2021-11-02 05:19 | NUR ---
PT CONTINUES MOD I IN ROOM. OCCASIONALLY REQUEST ASSIST TO REPOSITION PILLOWS AND LINENS IN THE NIGHT.
[2021-11-02 06:29] LABS: BASO # 0.1 K/mm3 (0.0-0.2); BASO % 0.6 % (0.0-2.0); EOS # 0.3 K/mm3 (0.0-0.7); GRAN # 8.2 K/mm3 (1.4-6.5); GRAN % 73.6 % (42.2-75.2); HEMATOCRIT 39.2 % (42.0-52.0); HEMOGLOBIN 12.6 g/dl (13.5-18.0); LYMPH # 1.3 K/mm3 (1.2-3.4); LYMPH % 11.5 % (20.0-51.0); MEAN CELL VOLUME 94 fl (80.0-100.0); MEAN CORPUSCULAR HEMOGLOBIN 30 pg (27-31); MEAN CORPUSCULAR HGB CONC 32 g/dl (33.0-37.0); MEAN PLATELET VOLUME 10.3 fl (7.4-10.4); MONO # 1.1 K/mm3 (0.1-0.6); MONO % 10.3 % (1.7-9.3); PLATELET COUNT 324 K/mm3 (130-400); RED BLOOD COUNT 4.19 M/mm3 (4.20-5.60); REDCELL DISTRIBUTION WIDTH-CV 13.6 % (11.5-14.5)
[2021-11-02 07:05] LABS: ALBUMIN 2.9 gm/dL (3.4-4.8); BILIRUBIN,TOTAL 0.5 mg/dL (0.2-1.2); CALCIUM 9.1 mg/dL (8.4-10.2); CREATININE, serum 1.02 mg/dL (0.72-1.25); POTASSIUM 4.2 mmol/L (3.5-4.5); TOTAL PROTEIN 6.3 gm/dL (6.2-8.1)
--- NOTE | 2021-11-02 11:30 | NUR ---
GRETEL met with the patient and his to follow up on preference for home health vs outpatient PT/OT. The patient states that he would like to pursue with outpatient therapy. He would like to resume outpatient PT at the [facility] located in [facility] and OT at the [facility]. Denisse reports that she would prefer his OT appointment to be scheduled after hers, since they get a ride to their appointments. GRETEL presented and read the IM form outloud to the patient. The patient verbalized understanding and signed the form. GRETEL provided him with a copy. GRETEL contacted [facility] in [facility]. The patient already has an appointment scheduled there on Tuesday, 11/06, at 1300. GRETEL contacted [facility] and secured the patient an OT appointment on 11/16 at 1030. There was no sooner appointments that were back to back with the patient's . Orders will need to be faxed to [facility].
[2021-11-02 17:21] VITALS: BP 125/64; PULSE 61; TEMP 98.3
--- NOTE | 2021-11-02 19:15 | NUR ---
RECEIVED CHANGE OF SHIFT REPORT FROM DAY SHIFT RN. PATIENT UP IN ROOM PER SELF WITH NO REPORTED PROBLEMS. SEE MAR FOR REQUESTED SUPP GIVEN AFTER REPORTING HE FELT HE WAS STILL SOMEWHAT BLOATED BUT STILL PASSING FLATUS, WAS TOLD HE COULD HAVE A SUPP IF HE WANTED ONE IF IT WAS AVAILABLE. AT BEDSIDE.
[2021-11-03 05:38] VITALS: BP 112/64; PULSE 60; TEMP 98.6
--- NOTE | 2021-11-03 07:07 | NUR ---
CHANGE OF SHIFT REPORT GIVEN TO DAY SHIFT RNYONY.
--- NOTE | 2021-11-03 07:10 | NUR ---
BEDSIDE REPORT DONE ORDER. PATIENT RESTING IN RECLINER WITH NO DISTRESS. CALL LIGHT IN REACH
--- NOTE | 2021-11-03 09:17 | NUR ---
ASSESSMENT DONE ORDER. PATIENT LUNG SOUND CLEAR. BOWEL SOUND ACTIVE IN ALL 4 QUADS. PATIENT MOD 1 IN ROOM AND WILL BE DISCHARGE TODAY. NO PAIN AT THIS TIME. CALL LIGHT IN REACH.
--- NOTE | 2021-11-03 09:31 | NUR ---
The patient is to discharge back home with his today, 11/03, with outpatient PT at [facility] located in [facility] and outpatient OT at [facility] on [address]. SW to fax orders to [facility], once finalized. No additional needs at this time.
[2021-11-03] MEDS ORDERED: XARELTO10 MG PO (11:43)
[2021-11-03] MEDS ORDERED: COLACE 100100 MG/CAP PO (11:44)
[2021-11-03] MEDS ORDERED: CLOTRIMAZOLE ANTIF1% TP (11:45)
[2021-11-03] MEDS ORDERED: SENNA-S 50 MG-81 TAB PO (11:45)
[2021-11-03] MEDS ORDERED: MIRALAX238G PO (11:45)
[2021-11-03] MEDS ORDERED: MELATIN 3 MG-11 TAB PO (11:46)
[2021-11-03] MEDS ORDERED: NORCO 325 MG-51 TAB PO (11:46)
--- NOTE | 2021-11-03 14:52 | NUR ---
DISCHARGE NOTES DONE. PATIENT WAS EDUCATED ON ALL INSTRUCTION ON NEW MEDICATION. EXPLAIN ABOUT APPOINTMENTS WITH DOCTORS. EXPLAIN TO KEEP BANDAGE ON UNTIL HE SEE DR HWANG TOMORROW.EXPLAIN TO ABOUT ACTIVITY TOLERATED AND TO CONTINUE WITH LOW FIBER DIET UNTIL HE SEE THE PCP. PATIENT AND UNDERSTOOD ALL INSTRUCTION. TOOK PATIENT IN WHEELCHAIR OUT OF FACILITY.
== END 2021-11-03 14:50 | disposition home or self-care (01) | DRG 560 ==
PROVIDERS: Internal Medicine; Physician Assistant; ADMIT Physical Medicine & Rehabilitation Sports Medicine
DX: Z47.1 Aftercare following joint replacement surgery (principal); K91.30 Postprocedural intestinal obstruction, unspecified as to partial versus complete; Z96.642 Presence of left artificial hip joint; K21.9 Gastro-esophageal reflux disease without esophagitis; G47.33 Obstructive sleep apnea (adult) (pediatric); K59.00 Constipation, unspecified; R26.89 Other abnormalities of gait and mobility; E66.9 Obesity, unspecified; I48.0 Paroxysmal atrial fibrillation; J45.909 Unspecified asthma, uncomplicated; G47.00 Insomnia, unspecified; B35.3 Tinea pedis; Z79.01 Long term (current) use of anticoagulants; Z95.0 Presence of cardiac pacemaker; Z79.899 Other long term (current) drug therapy; Z73.6 Limitation of activities due to disability; Z68.34 Body mass index [BMI] 34.0-34.9, adult
CPT/HCPCS: 99233-AI

== ENCOUNTER 2021-11-06 12:56 | Outpatient (RCR) | payer MEDICARE, OTHER ==
[~2021-11-06 12:56] MED LIST changes: +CLOTRIMAZOLE ANTIF1% TP; +COLACE 100100 MG/CAP PO; +MELATIN 3 MG-11 TAB PO; +MIRALAX238G PO; +NORCO 325 MG-51 TAB PO; +SENNA-S 50 MG-81 TAB PO
== END 2021-11-08 | disposition still patient (30) ==
LOC: PT.GENESIS
DX: M16.12 Unilateral primary osteoarthritis, left hip (principal)

== ENCOUNTER → 2021-12-09 | Outpatient (RCR) | payer MEDICARE, OTHER | END | disposition home or self-care (01) | LOC: PT.GENESIS | DX: M16.12 Unilateral primary osteoarthritis, left hip (principal); Z96.642 Presence of left artificial hip joint ==

== ENCOUNTER 2022-01-13 13:08 | Outpatient (RCR) | payer MEDICARE, OTHER | END 2022-01-18 14:25 | disposition home or self-care (01) | LOC: PT.GENESIS 13:08 | DX: Z96.642 Presence of left artificial hip joint (principal) ==

== ENCOUNTER → 2022-08-04 | Outpatient (CLI) | payer MEDICARE, OTHER ==
[2022-08-04 08:02] LABS: BASO # 0.1 K/mm3 (0.0-0.2); BASO % 0.8 % (0.0-2.0); EOS # 0.2 K/mm3 (0.0-0.7); EOS % 2.6 % (0.0-4.0); GRAN # 5.3 K/mm3 (1.4-6.5); GRAN % 69.5 % (42.2-75.2); HEMATOCRIT 45.5 % (42.0-52.0); HEMOGLOBIN 14.7 g/dl (13.5-18.0); LYMPH # 1.3 K/mm3 (1.2-3.4); LYMPH % 16.7 % (20.0-51.0); MEAN CELL VOLUME 91 fl (80.0-100.0); MEAN CORPUSCULAR HEMOGLOBIN 30 pg (27-31); MEAN CORPUSCULAR HGB CONC 32 g/dl (33.0-37.0); MEAN PLATELET VOLUME 10.4 fl (7.4-10.4); MONO # 0.8 K/mm3 (0.1-0.6); PLATELET COUNT 172 K/mm3 (130-400); RED BLOOD COUNT 4.99 M/mm3 (4.20-5.60); REDCELL DISTRIBUTION WIDTH-CV 14.2 % (11.5-14.5)
[2022-08-04 08:20] LABS: ALBUMIN 3.4 gm/dL (3.4-4.8); BILIRUBIN,TOTAL 0.7 mg/dL (0.2-1.2); CALCIUM 9.1 mg/dL (8.4-10.2); CHOLESTEROL RISK RATIO 4.2; CREATININE, serum 1.23 mg/dL (0.72-1.25); POTASSIUM 4.4 mmol/L (3.5-4.5); TOTAL PROTEIN 6.8 gm/dL (6.2-8.1)
[2022-08-04 08:42] LABS: THYROID STIMULATING HORMONE 1.956 uIU/mL (0.350-4.940)
== END ==
LOC: COL.LAB 07:04
PROVIDERS: Internal Medicine
DX: R73.01 Impaired fasting glucose (principal); R74.8 Abnormal levels of other serum enzymes; J30.2 Other seasonal allergic rhinitis; K22.70 Barrett's esophagus without dysplasia

== ENCOUNTER 2023-01-07 09:00 | Outpatient (RCR) | payer MEDICARE, OTHER ==
[~2023-01-07 09:00] MED LIST changes: +PATADAY5 ML OP; +SYSTANE 0.4%-0.1 SOL OU; +TRIAMC 0.025 80 TOP; +ZIAC 2.5/6.25MG1 TAB PO; +ZYLOPRIM 300MG300 MG PO
== END 2023-01-08 | disposition home or self-care (01) ==
LOC: PT.GENESIS
DX: M48.061 Spinal stenosis, lumbar region without neurogenic claudication (principal)

== ENCOUNTER 2023-03-08 13:45 | Outpatient (RCR) | payer MEDICARE, OTHER | END 2023-03-10 | disposition home or self-care (01) | LOC: PT.GENESIS | DX: M48.061 Spinal stenosis, lumbar region without neurogenic claudication (principal) ==

== ENCOUNTER 2023-03-29 13:45 | Outpatient (RCR) | payer MEDICARE, OTHER | END 2023-04-10 | disposition home or self-care (01) | LOC: PT.GENESIS | DX: M48.061 Spinal stenosis, lumbar region without neurogenic claudication (principal) ==

== ENCOUNTER 2023-04-12 13:00 | Outpatient (RCR) | payer MEDICARE, OTHER | END 2023-05-11 | disposition home or self-care (01) | LOC: PT.GENESIS | DX: M48.061 Spinal stenosis, lumbar region without neurogenic claudication (principal) ==